=== PATIENT | female | born 1950 | race Caucasian/White ===

== ENCOUNTER → 2021-07-18 | Outpatient (CLI) | payer OTHER ==
[~2021-07-18] MED LIST: ASPIRIN EC81 M1 PO; CALCIUM-MAGNES1 EAC9 PO; FLONASE 0.05%50 MCG NARES; FOSAMAX 70 MG T70 MG PO; LEVOTHYROXINE88 MC1 PO; LIPITOR 10 MG10 M1 PO; LISINOPRIL10 MG PO; MULTI VITAMIN1 EACH PO; VITAMIN D325 MC3 PO
== END ==
LOC: LAB 09:14
PROVIDERS: ATTEND Student in an Organized Health Care Education/Training Program
DX: Z01.812 Encounter for preprocedural laboratory examination (principal); Z20.822 Contact with and (suspected) exposure to COVID-19

== ENCOUNTER → 2021-07-19 | Outpatient (CLI) | payer OTHER ==
[~2021-07-19] VITALS: Ht 165.1 cm; Wt 83.9 kg
--- NOTE | ~2021-07-19 | P ---
[facility] [place] [address] PROCEDURE REPORT Name: RAULITO AUGUST Room #: REG Luis Miguel Mart#: [id number] Admission: 07/19/21 Attend Phys: Rodolfo Dahl Discharge: Date of : 46 Report #: [id number] THIS REPORT FOR: cc: Rosamaria Ortiz MD,Rodolfo Valencia MD, MD ~ cc: Rosamaria Ortiz MD DATE OF SERVICE: 07/19/2021 PROCEDURE PERFORMED: Colonoscopy with biopsies. HISTORY OF PRESENT ILLNESS: The patient is a 71-year-old female with a history of colon polyps, last colonoscopy 5 years ago in which an adenomatous polyp was removed. She reports for routine followup. She denies any symptoms. No family history of colon cancer. DESCRIPTION OF PROCEDURE: The risks and benefits of the procedure were explained to the patient, those risks including but not limited to bleeding, perforation and the risk of sedation. She understood these risks and gave informed consent. Sedation was given using propofol per anesthesia. Next, a digital rectal exam was initially performed, which was normal. Next, using a standard Olympus colonoscope, the scope was placed in the patient's anus and advanced under direct vision to the cecum. The overall prep was excellent. The cecum and ileocecal valve were normal in appearance. The ascending, transverse and descending colon were normal. A few small diverticula were noted in the sigmoid colon. No evidence of inflammation. Also noted was a 3 mm sessile polyp. This was removed with cold forceps. The rectal mucosa was normal. On retroflexion, no abnormalities were noted. The scope was then withdrawn and the procedure terminated. The patient tolerated the procedure well. IMPRESSION: 1. Sigmoid diverticulosis. 2. Small sigmoid colon polyp. 3. Otherwise, normal colonoscopy. RECOMMENDATIONS: 1. Await biopsy results. 2. If polyp is adenomatous, repeat in 5 years. If hyperplastic, consider repeat in [address] [address] PROCEDURE REPORT Name: MARIANGELSUSANRAULITO Room #: REG ELLY Mart#: [id number] Admission: 07/19/21 Attend Phys: Rodolfo Dahl Discharge: Date of : 46 Report #: [id number] Thank you for allowing me to participate in her care. By: [id number] Rodolfo Skaggs MD /nt
--- NOTE | 2021-07-21 13:08 | PATH ---
[facility] [address] [place] [address] PATHOLOGY RPT PROCEDURE Name: IRINA KYLEN Room #: REG [facility] Sudeep.#: [id number] Admission: 07/19/21 Date of : 46 Discharge: Report #: [id number] Path Case #: [id number] [facility] Accession Number: [id number] . 01 Material submitted: . sigmoid colon - SIGMOID POLYP . 01 Clinical history: . COLONOSCOPY/SCREENING DIVERTICULOSIS . 02 Diagnosis: Polyp, sigmoid polyp, endoscopic biopsy: - Polypoid mucosa with reactive changes, hyperplastic changes, and a lymphoid aggregate. - Negative for dysplasia or malignancy. (IUV:pit; 07/20/2021) QTP 07/20/2021 1719 Local . 02 Electronically signed: . Fiorella Au MD, Pathologist NPI- [id number] . 01 Gross description: . The specimen is submitted in formalin, labeled "Loree Kyle, sigmoid polyp". Received are 2 segments of pale norman tissue ranging in size from 0.2 to 0.3 cm in maximum dimensions. The specimen is submitted in cassette A1. ([facility]; 07/19/2021) NRI/NRI 07/19/2021 1801 Local . 02 Pathologist provided ICD-10: K57.90, Z12.11 . 02 CPT . 448010 Specimen Comment: A courtesy copy of this report has been sent to [phone], [phone] Specimen Comment: [phone] Specimen Comment: Report sent to / DR KIRAN Performed at: [address] [id number] MD Franco Mendoza MD Phone: [phone] Performed at: [address] [id number] [address] [address] PATHOLOGY RPT PROCEDURE Name: LOREE KYLE Room #: REG CLLuis Miguel Sheets.#: [id number] Admission: 07/19/21 Date of : 46 Discharge: Report #: [id number] Path Case #: [id number] MD Fiorella Au MD Phone: [phone]
== END | disposition home or self-care (01) ==
LOC: GI
PROVIDERS: ATTEND Specialist
DX: Z12.11 Encounter for screening for malignant neoplasm of colon (principal); Z86.010 Personal history of colon polyps; K63.5 Polyp of colon; K57.30 Diverticulosis of large intestine without perforation or abscess without bleeding; I10 Essential (primary) hypertension; E78.5 Hyperlipidemia, unspecified; E03.9 Hypothyroidism, unspecified; K21.9 Gastro-esophageal reflux disease without esophagitis; Z98.890 Other specified postprocedural states; Z79.899 Other long term (current) drug therapy
CPT/HCPCS: 62110; 62900